=== PATIENT | female | born 1955 | race Caucasian/White ===

== ENCOUNTER → 2017-06-07 | Outpatient (CLI) | payer OTHER | LOC: RAD 10:36 | DX: M47.896 Other spondylosis, lumbar region (principal); M16.11 Unilateral primary osteoarthritis, right hip; M47.894 Other spondylosis, thoracic region; M25.531 Pain in right wrist ==

== ENCOUNTER → 2019-11-28 | Outpatient (CLI) | payer OTHER | LOC: CAT 12:28 | DX: Z13.6 Encounter for screening for cardiovascular disorders (principal); I25.10 Atherosclerotic heart disease of native coronary artery without angina pectoris; E78.00 Pure hypercholesterolemia, unspecified ==

== ENCOUNTER → 2020-02-01 | Outpatient (CLI) | payer OTHER, MEDICARE | LOC: NUC 10:08 | PROVIDERS: ATTEND Family Medicine | DX: M81.0 Age-related osteoporosis without current pathological fracture (principal); M85.88 Other specified disorders of bone density and structure, other site ==

== ENCOUNTER → 2021-05-28 | Outpatient (CLI) | payer OTHER, MEDICARE | LOC: NUC 13:14 | PROVIDERS: ATTEND Family Medicine | DX: M81.0 Age-related osteoporosis without current pathological fracture (principal) ==